=== PATIENT | female | born 1990 | race Caucasian/White ===

== ENCOUNTER 2018-05-16 03:38 | Emergency (ER) | payer MEDICAID, OTHER | END 2018-05-16 05:29 | disposition home or self-care (01) | LOC: FTE 03:38 | DX: S06.0X0A Concussion without loss of consciousness, initial encounter (principal); S16.1XXA Strain of muscle, fascia and tendon at neck level, initial encounter; V89.2XXA Person injured in unspecified motor-vehicle accident, traffic, initial encounter | CPT/HCPCS: 70450; 99284-25 ==